=== PATIENT | female | born 1990 | race Caucasian/White ===

== ENCOUNTER → 2016-07-04 | Outpatient (CLI) | payer OTHER ==
[~2016-07-04] MED LIST: IBUP800T23 PO; METH750T2 PO; NORG1TAB3 PO; Z.0.BCPILL PO
== END ==
LOC: CPRE 11:25
PROVIDERS: ATTEND Specialist
DX: J32.9 Chronic sinusitis, unspecified (principal)

== ENCOUNTER → 2016-07-06 | Day surgery (SDC) | payer OTHER ==
--- NOTE | 2016-07-05 18:08 | MH ---
cc: NICHELLE BRANCH DATE OF ADMISSION 07/06/2016 REASON FOR ADMISSION A 25-year-old with chronic sinusitis, nasal obstruction for nasal sinus surgery. PAST MEDICAL HISTORY Unremarkable. PAST SURGICAL HISTORY Unremarkable. REVIEW OF SYSTEMS Unremarkable. FAMILY HISTORY AND SOCIAL HISTORY Unremarkable. PHYSICAL EXAMINATION GENERAL: Well-appearing patient no acute distress noted. HEENT: Exam reveals septal deviation, turbinate hypertrophy, bilateral polyposis. LUNGS: Clear. HEART: Regular rate and rhythm. ABDOMEN: Soft and nontender. EXTREMITIES: Without cyanosis, clubbing or edema. NEUROLOGIC: Alert, oriented, nonfocal neurologic exam. IMPRESSION Patient with chronic sinusitis and nasal obstruction for nasal sinus surgery. Instructed in the method of surgery and possible complications and these include anesthetic complications, cardiac difficulty, pulmonary difficulty, stroke, or even . Surgical complications bleeding, infection, risk of injury to orbit including blindness and diplopia, risk of injury to brain including CSF leak, meningitis, brain abscess or even , risk of bleeding, infection, septal perforation, decreased sense of smell, recurrent infections and recurrent surgery. The patient appeared to agree, accept and understand above-mentioned risks and benefits. In addition no guarantees or warranties regarding outcome were given. We will therefore proceed with surgery. MD ZARIA Gaytan/GAIL /5:06 PM /5:54 PM
[~2016-07-06] VITALS: Ht 160 cm; Wt 65.2 kg
[~2016-07-06] MED LIST changes: +*morphine SULFATE 8 MG/ML PERIprocedure ONLY ONE; +ACETAMINOPHEN 1000 MG/100 ML VIAL IV ONE; +ACETAMINOPHEN/HYDROcodone 325 MG/7.5 MG TAB PO PRN; +DEXAMETHASONE SOD PHOS 4 MG/ML VIAL ONE; +DO NOT ADM ANY ANTICOAGULANT DRUGS XX PRN; +EPINEPHrine HCL (1:1000) 30 MG/30 ML VIAL OTHER ONE; -IBUP800T23 PO; +INSULIN HUMAN REGULAR 1,000 UNITS/10 ML VIAL SQ PRN; +LACTATED RINGER'S 1000 ML IV SCH; +LIDOCAINE 1%/EPINEPHrine 1:100,000 SOLN 30 ML VIAL INFIL ONE; -METH750T2 PO; +METOPROLOL TARTRATE 25 MG TAB PO PRN; +MIDAZOLAM HCL 2 MG/2 ML VIAL IV ONE; +MORPHINE SULFATE 4 MG/ML INJ IV PRN; +ONDANSETRON HCL 4 MG/2 ML VIAL IV PUSH PRN; +ONDANSETRON HCL 4 MG/2 ML VIAL ONE; +PROPOFOL 200 MG/20 ML AMP IV ONE; +SODIUM CHLORID 0.9% 500 ML IV SCH; -Z.0.BCPILL PO; +ePHEDrine/NS 25 MG/5 ML SYR IV ONE; +fentaNYL CITRATE 250 MCG/5 ML AMP ONE
[2016-07-06 06:54] VITALS: BP 104/74; PULSE 80; RESP 18; TEMP 98.1; O2SAT 100
[2016-07-06 11:05] VITALS: BP 98/55; PULSE 83; RESP 16; TEMP 98; O2SAT 98
--- NOTE | 2016-07-09 14:16 | MP ---
cc: NICHELLE BRANCH DATE OF SURGERY: 07/06/2016. PREOPERATIVE DIAGNOSIS: 1. Nasal obstruction. 2. Chronic sinusitis. OPERATION: 1. Open septal reconstruction. 2. Left endoscopic frontal sinusotomy. 3. Right endoscopic frontal sinusotomy. 4. Left endoscopic anterior posterior ethmoidectomy. 5. Right endoscopic anterior posterior ethmoidectomy. 6. Left endoscopic maxillary antrostomy with removal of tissue. 7. Right endoscopic maxillary antrostomy with removal of tissue. 8. Left and right inferior turbinate resection, submucous resection. 9. Bilateral nasal polypectomy. SURGEON: Nichelle Branch MD ANESTHESIA: General. ESTIMATED BLOOD LOSS: Less than 100 cc. COMPLICATIONS: No complications. DESCRIPTION OF THE PROCEDURE IN DETAIL: Prepped, draped usual fashion. 1% Xylocaine 1:100,000 epinephrine injected into nasal septum. The polyps themselves the middle meatus. DESCRIPTION OF OPERATION Prepped and draped. Once the injections were performed in the middle meatus and the polyps and the inferior meatus and the septum bilaterally, the microdebrider was used to remove the polyps in the left middle meatus and the nasal cavity. An uncinectomy was performed under endoscopic visualization. The anterior posterior ethmoidectomy was performed with the microdebrider taking care not to injure the orbit or the cranial vault. Significant polypoid tissue removed at this point. The natural antrostomy identified and enlarged with the microdebrider and polypoid tissue removed from the maxillary sinus on the left side. Frontal sinus recess dissection performed as well with the microdebrider under endoscopic visualization. Telfa splint placed in left middle meatus. In similar fashion opposite side significant polypoid tissue removed with the microdebrider under endoscopic visualization anterior posterior ethmoidectomy and uncinectomy performed with the microdebrider with significant removal of polypoid tissues, natural antrostomy identified and enlarged. Polypoid tissue as well as fungal debris removed under endoscopic visualization. The frontal sinus recess dissection then performed with the microdebrider removing bone and mucosa enlarging frontal sinus recess. Telfa splint placed in middle meatus. Mucoperichondrial incision made right side of nose. Mucoperichondrial flap elevated and on the septum. Significant amount of bone and cartilage removed to improve the nasal airway and reduce the nasal fracture. The mucoperichondrial flap was reapproximated. The inferior turbinate was removed. The submucosa was reduced bilaterally with multiple insertions of the Coblator probe sparing mucosa. No bleeding was noted. The nose was suctioned. The patient tolerated the procedure well. MD ZARIA aGytan/CHRISTIE /9:28 AM /2:08 PM
== END | disposition home or self-care (01) ==
LOC: HSDC 06:06
PROVIDERS: ATTEND Specialist
DX: J32.9 Chronic sinusitis, unspecified (principal); J34.2 Deviated nasal septum; J34.3 Hypertrophy of nasal turbinates; J33.0 Polyp of nasal cavity
CPT/HCPCS: 00160; 30140; 30520; 31255; 31267; 31276; J0131; J0171; J1100; J2250; J2270; J2405; J3010

== ENCOUNTER 2017-07-31 20:44 | Emergency (ER) | payer OTHER ==
[~2017-07-31] VITALS: Ht 157.5 cm; Wt 75.2 kg
[~2017-07-31 20:44] MED LIST changes: -*morphine SULFATE 8 MG/ML PERIprocedure ONLY ONE; -ACETAMINOPHEN 1000 MG/100 ML VIAL IV ONE; -ACETAMINOPHEN/HYDROcodone 325 MG/7.5 MG TAB PO PRN; -DEXAMETHASONE SOD PHOS 4 MG/ML VIAL ONE; -DO NOT ADM ANY ANTICOAGULANT DRUGS XX PRN; -EPINEPHrine HCL (1:1000) 30 MG/30 ML VIAL OTHER ONE; -INSULIN HUMAN REGULAR 1,000 UNITS/10 ML VIAL SQ PRN; -LACTATED RINGER'S 1000 ML IV SCH; -LIDOCAINE 1%/EPINEPHrine 1:100,000 SOLN 30 ML VIAL INFIL ONE; -METOPROLOL TARTRATE 25 MG TAB PO PRN; -MIDAZOLAM HCL 2 MG/2 ML VIAL IV ONE; -MORPHINE SULFATE 4 MG/ML INJ IV PRN; -ONDANSETRON HCL 4 MG/2 ML VIAL IV PUSH PRN; -ONDANSETRON HCL 4 MG/2 ML VIAL ONE; -PROPOFOL 200 MG/20 ML AMP IV ONE; -SODIUM CHLORID 0.9% 500 ML IV SCH; -ePHEDrine/NS 25 MG/5 ML SYR IV ONE; -fentaNYL CITRATE 250 MCG/5 ML AMP ONE
[2017-07-31 20:46] VITALS: BP 135/57; PULSE 135; RESP 20; TEMP 98; O2SAT 94
--- NOTE | 2017-07-31 21:06 | PD ---
HPI Chief Complaint: Respiratory Symptoms Time Seen by Provider: 20:57 Travel History International Travel<30 days: No Contact w/Intl Traveler<30days: No Traveled to known affect area: No History of Present Illness HPI The patient was seen and examined in the presence of the nurse. This patient complains of shortness of breath. Her symptoms are severe. She has borderline hypoxia on room air. Duration is one day. She denies history of respiratory disease. She has had nasal congestion and runny nose and dry hacking cough. Denies fever or chest pain. She quit smoking 1 year ago. No alleviating factors. No exacerbating factors. PFSH Past Medical History Cancer: No Cardiovascular Problems: No Diabetes: No Diminished Hearing: No Endocrine: No Genitourinary: No Hepatitis: No Hiatal Hernia: No Immune Disorder: No Musculoskeletal: No Neurologic: No Psychiatric: No Reproductive: No Respiratory: Yes (NASAL CONGESTION) Resp. Syncytial Virus (RSV): Yes (AT 6 MONTHS OLD) Immunizations Current: Yes Thyroid Disease: No Tetanus Vaccination: > 5 Years Influenza Vaccination: No ?: Not LMP: 05/18/17 : 0 Past Surgical History AICD: No Joint Replacement: No Pacemaker: No Other Surgery: Yes (NASAL POLYPS: JUNE 2016) Social History Alcohol Use: Yes (2 BEERS A WEEK) Tobacco Use: No (QUIT NOVEMBER 2016) Substance Use: No Allergies-Medications (Allergen,Severity, Reaction): Coded Allergies: No Known Allergies (Verified Adverse Reaction, Unknown, 07/31/17) Reported Meds & Prescriptions Reported Meds & Active Scripts Active Ventolin Hfa 18 GM Inh (Albuterol Sulfate) 90 Mcg/Act Aer 2 Puff INH Q4H PRN Prednisone 20 Mg Tab 40 Mg PO DAILY Take 40 mg (2 tablets) daily for 5 days Review of Systems General / Constitutional: No: Fever Eyes: No: Visual changes HENT: Positive: Congestion, No: Headaches Cardiovascular: Positive: Tachycardia, No: Chest Pain or Discomfort Respiratory: Positive: Cough, Shortness of Breath, Wheezing Gastrointestinal: No: Abdominal Pain Genitourinary: No: Dysuria Musculoskeletal: No: Pain Skin: No Rash Neurologic: No: Weakness Psychiatric: No: Depression Endocrine: No: Polydipsia Hematologic/Lymphatic: No: Easy Bruising Physical Exam Narrative GENERAL: Well-nourished, well-developed patient in respiratory distress. SKIN: Focused skin assessment reveals no rash and nodules. Skin is Warm and dry. HEAD: Atraumatic. Normocephalic. EYES: Pupils equal and round. No scleral icterus. No injection or drainage. ENT: No nasal bleeding or discharge. Mucous membranes pink and moist. NECK: Trachea midline. No JVD. CARDIOVASCULAR: Regular rate and rhythm. No murmur appreciated. Tachycardic and regular RESPIRATORY: Positive accessory muscle use. Diminished breath sounds throughout. There is expiratory wheezing.breath sounds equal bilaterally. GASTROINTESTINAL: Abdomen soft, non-tender, nondistended. Hepatic and splenic margins not palpable. MUSCULOSKELETAL: No obvious deformities. No clubbing. No cyanosis. No edema. NEUROLOGICAL: Awake and alert. No obvious cranial nerve deficits. Motor grossly within normal limits. Normal speech. PSYCHIATRIC: Appropriate mood and affect; insight and judgment normal. Data Data Last Documented VS Vital Signs Date Time Temp Pulse Resp B/P (MAP) Pulse Ox O2 Delivery O2 Flow Rate FiO2 07/31/17 22:26 127 22 96 Room Air 07/31/17 21:11 2.00 07/31/17 20:46 98.0 135/57 (83) Orders Orders Complete Blood Count With Diff (07/31/17 21:01) Basic Metabolic Panel (Bmp) (07/31/17 21:01) Influenzae A/B Antigen (07/31/17 21:01) Iv Access Insert/Monitor (07/31/17 21:01) Ecg Monitoring (07/31/17 21:01) Oximetry (07/31/17 21:01) Oxygen Administration (07/31/17 21:01) Chest, Single Ap (07/31/17 21:01) Sodium Chloride 0.9% Flush (Ns Flush) (07/31/17 21:15) Albuterol-Ipratropium Neb (Duoneb Neb) (07/31/17 21:15) Methylprednisolone So Succ Inj (Solumedr (07/31/17 21:15) Ed Urine Pregnancytest Poc (07/31/17 21:01) Albuterol-Ipratropium Neb (Duoneb Neb) (07/31/17 22:30) Labs Laboratory Tests Test 07/31/17 21:30 White Blood Count 10.5 TH/MM3 Red Blood Count 4.40 MIL/MM3 Hemoglobin 13.5 GM/DL Hematocrit 38.6 % Mean Corpuscular Volume 87.6 FL Mean Corpuscular Hemoglobin 30.6 PG Mean Corpuscular Hemoglobin Concent 34.9 % Red Cell Distribution Width 11.9 % Platelet Count 179 TH/MM3 Mean Platelet Volume 7.6 FL Neutrophils (%) (Auto) 59.0 % Lymphocytes (%) (Auto) 21.6 % Monocytes (%) (Auto) 6.6 % Eosinophils (%) (Auto) 11.9 % Basophils (%) (Auto) 0.9 % Neutrophils # (Auto) 6.1 TH/MM3 Lymphocytes # (Auto) 2.3 TH/MM3 Monocytes # (Auto) 0.7 TH/MM3 Eosinophils # (Auto) 1.3 TH/MM3 Basophils # (Auto) 0.1 TH/MM3 CBC Comment DIFF FINAL Differential Comment Blood Urea Nitrogen 9 MG/DL Creatinine 1.00 MG/DL Random Glucose 117 MG/DL Calcium Level 8.5 MG/DL Sodium Level 140 MEQ/L Potassium Level 3.6 MEQ/L Chloride Level 108 MEQ/L Carbon Dioxide Level 27.9 MEQ/L Anion Gap 4 MEQ/L Estimat Glomerular Filtration Rate 68 ML/MIN MDM Medical Decision Making Medical Screen Exam Complete: Yes Emergency Medical Condition: Yes Medical Record Reviewed: Yes Differential Diagnosis Hypoxic respiratory failure, pneumonia, asthma Narrative Course I have reviewed the patient's electronic medical record. Patient arrives critically ill with severe shortness of breath and laboring and borderline hypoxia on room air She has very little air movement Given her series of 3 nebulizer treatments and IV Solu-Medrol I reviewed her chest x-ray which is normal IV placed and labs sent She is placed on oxygen CBC and metabolic studies are normal Multiple rechecks were done Patient steadily improved with each nebulizer treatment After the third 1 she was much more clear and had room air saturations of 97% I gave her a bit of resting time as she was tachycardic from the albuterol I am giving her a fourth nebulizer treatment Saturations remain excellent she is doing much better At this point I do not feel she requires hospitalization. Her sinus tachycardia should resolve when the albuterol effect wears off. Saturations are 98-99%. I reviewed with patient and mother at bedside and answered their questions. I prescribed an albuterol inhaler and 5 days of prednisone. Mother will bring her back if she has any significant worsening. Primary care follow-up recommended. I suspect she has a viral respiratory infection which may have set this off. Critical Care Narrative Aggregate critical care time was 35 minutes. Time to perform other separately billable procedures was not included in the critical care time. My time did not include minutes spent treating any other patients simultaneously or on activities that did not directly contribute to the patient's treatment. The services I provided to this patient were to treat and/or prevent clinically significant deterioration that could result in: Cardiopulmonary arrest, respiratory collapse, hypoxemic brain injury I provided critical care services requiring my management, as noted below: Chart data review, documentation time, medication orders and management, vital sign assessments/reviewing monitor data, ordering and reviewing lab tests, ordering and interpreting/reviewing x-rays and diagnostic studies, care of the patient and discussion of the patient with the admitting physicians. Diagnosis Primary Impression: Acute respiratory failure with hypoxia Additional Impressions: Wheezing on expiration Acute viral syndrome Additional Instructions: Return if worse The patient was advised to follow up with their physician and return if they worsen. Med/Other Pt SpecificInfo: Prescription(s) given Scripts Albuterol 18 GM Inh (Ventolin Hfa 18 GM Inh) 90 Mcg/Act Aer 2 PUFF INH Q4H Y for SHORTNESS OF BREATH, #1 INHALER 0 Refills Prov: Piter Menendez MD 07/31/17 Prednisone (Prednisone) 20 Mg Tab 40 MG PO DAILY, #10 TAB 0 Refills Take 40 mg (2 tablets) daily for 5 days Prov: Piter Menendez MD 07/31/17 Disposition: 01 DISCHARGE HOME Condition: Stable Piter Menendez MD Jul 31, 2017 21:06
[2017-07-31 21:11] VITALS: O2SAT 99
[2017-07-31] MEDS: RESP: ALBUTEROL 2.5 MG/IPRATROPIUM 0.5 MG NEB (SCH) INH ×3 (21:11→21:38)
[2017-07-31] MEDS ORDERED: SODIUM CHLORIDE 0.9% FLUSH 10 ML FLUSH IVF PRN (21:15)
[2017-07-31] MEDS ORDERED: methylPREDNISolone SOD SUCC 125 MG/2 ML VIAL IV PUSH ONE (21:15)
--- NOTE | 2017-07-31 21:17 | RADRPT ---
EXAM DATE/TIME: 07/31/2017 21:04 [facility] COMPARISON: No previous studies available for comparison. INDICATIONS : Severe shortness of breath. Wheezing. MEDICAL HISTORY : Former smoker. SURGICAL HISTORY : None. ENCOUNTER: Initial ACUITY: 1 day PAIN SCORE: 0/10 LOCATION: chest FINDINGS: A single view of the chest demonstrates the lungs to be symmetrically aerated without evidence of mas s, infiltrate or effusion. The cardiomediastinal contours are unremarkable. Osseous structures are intact. CONCLUSION: No acute disease. Karthik Dasilva MD on July 31, 2017 at 21:15 Board Certified Radiologist. This report was verified electronically.
[2017-07-31 21:40] LABS: AUTOMATED NEUTROPHIL # 6.1 TH/MM3 (1.8-7.7); BASOPHIL # 0.1 TH/MM3 (0-0.2); BASOPHIL % 0.9 % (0.0-2.0); EOSINOPHIL # 1.3 TH/MM3 (0-0.4); EOSINOPHIL % 11.9 % (0.0-4.0); HEMATOCRIT 38.6 % (35.0-46.0); HEMOGLOBIN 13.5 GM/DL (11.6-15.3); LYMPH % 21.6 % (9.0-44.0); LYMPHOCYTE # 2.3 TH/MM3 (1.0-4.8); MEAN CELL VOLUME 87.6 FL (80.0-100.0); MEAN CORPUSCULAR HEMOGLOBIN 30.6 PG (27.0-34.0); MEAN CORPUSCULAR HGB CONC 34.9 % (32.0-36.0); MEAN PLATELET VOLUME 7.6 FL (7.0-11.0); MONO % 6.6 % (0.0-8.0); MONOCYTE # 0.7 TH/MM3 (0-0.9); PLATELET COUNT 179 TH/MM3 (150-450); RED CELL DISTRIBUTION WIDTH 11.9 % (11.6-17.2); WHITE BLOOD COUNT 10.5 TH/MM3 (4.0-11.0)
[2017-07-31 21:47] LABS: CALCIUM 8.5 MG/DL (8.5-10.1)
[2017-07-31 21:48] LABS: BICARBONATE 27.9 MEQ/L (21.0-32.0)
[2017-07-31 22:04] VITALS: PULSE 138; RESP 24; O2SAT 97
[2017-07-31 22:26] VITALS: PULSE 127; RESP 22; O2SAT 96
[2017-07-31] MEDS ORDERED: RESP: ALBUTEROL 2.5 MG/IPRATROPIUM 0.5 MG NEB (SCH) NEB ONE (22:30)
[2017-07-31] MEDS ORDERED: PRED20 PO (22:34)
[2017-07-31] MEDS ORDERED: VENTAER INH (22:34)
[2017-07-31 22:53] VITALS: BP 129/51; PULSE 135; RESP 20; TEMP 98.7; O2SAT 95
== END 2017-07-31 23:15 | disposition home or self-care (01) ==
LOC: PHED 20:44
DX: J96.01 Acute respiratory failure with hypoxia (principal); B34.9 Viral infection, unspecified; Z87.891 Personal history of nicotine dependence
CPT/HCPCS: 71045; 80048; 84703; 85025; 87804; 94640; 94664; 96374; 99291; J2930